=== PATIENT | male | born 1960 | race Two or more races ===

== ENCOUNTER 2018-12-07 16:34 | Outpatient (CLI) | payer OTHER ==
[~2018-12-07 16:34] MED LIST: CEFADROXIL500 MG PO
== END 2018-12-07 16:47 | disposition home or self-care (01) ==
LOC: LAB 16:34
DX: C02.2 Malignant neoplasm of ventral surface of tongue (principal); B96.89 Other specified bacterial agents as the cause of diseases classified elsewhere